=== PATIENT | female | born 2000 | race Caucasian/White ===

== ENCOUNTER 2020-04-26 21:58 | Inpatient (IN) | payer OTHER, SELFPAY ==
[2020-04-26 22:12] VITALS: BP 121/76; PULSE 73; TEMP 36.3; O2SAT 100
[2020-04-26 22:16] VITALS: BMI 32.3
[2020-04-26 22:43] LABS: Absolute Neutrophil Count 9.6 X10^3/uL (2.0-7.7); Basophil# 0.02 X10^3/uL; Basophil% 0.2 % (0-1); Eosinophil# 0.03 X10^3/uL; Eosinophils% 0.3 % (0-5); Hematocrit 38.6 % (37-47); Hemoglobin 12.7 g/dL (12.0-15.0); Lymphocyte % 11.9 % (19-41); Mean Corp Hgb Conc 32.9 g/dL (32-36); Mean Corpuscular Hgb 29.5 pg (27.0-32.0); Mean Corpuscular Volume 89.8 fL (81-99); Mean Platelet Vol. 9.7 fl (6.2-12.0); Monocyte# 0.62 X10^3/uL; Monocyte% 5.3 % (0-10); NRBC Flagged by Analyzer 0 % (0-5); Neutrophil # 9.57 X10^3/uL (2.7-7.7); Neutrophil % 81.6 % (47-70); Platelet Count 217 K/mm3 (150-450); RBC Distribution Width CV 13.2 % (11.6-14.6); RBC Distribution Width SD 43.5 fl (35.1-43.9); White Blood Count 11.7 K/mm3 (4.4-11.0)
[2020-04-26] MEDS: miSOPROStol 25 MCG TABLET VAGINAL (23:00)
[2020-04-26 23:32] VITALS: TEMP 37
[2020-04-26 23:43] VITALS: BP 118/62; PULSE 59; TEMP 36.7; O2SAT 97
[2020-04-27] VITALS (54 sets, daily range): BP systolic 86–126; BP diastolic 50–69; PULSE 60–97; RESP 16; TEMP 36–37.8; O2SAT 94–100
[2020-04-27] MEDS: Oxytocin 30 units/NS 500 ml 30 UNITS/500 ML IV.SOLN IV (04:00)
[2020-04-27] MEDS: Lactated Ringers 1,000 ML 50 ML IV (04:00)
[2020-04-27] MEDS: Lactated Ringers 500 ML 999 ML IV ×3 (04:14→10:53)
[2020-04-27] MEDS: fentaNYL-bupivacaine (epidural) 100 ML BAG EPIDURAL ×2 (05:59→10:38)
[2020-04-27] MEDS: 0.9% Saline Lock 10 ML Syringe IV ×2 (06:27→16:12)
[2020-04-27] MEDS: Ondansetron 4 MG/2 ML Vial IV (06:27)
--- NOTE | 2020-04-27 08:46 | HP.PCM_ITS ---
- Problem List (1) Encounter for induction of labor Status: Acute (2) COVID-19 affecting in third trimester Status: Acute (3) Anxiety and depression Status: Acute (4) History of spontaneous Status: Acute History Date of Admission: 04/26/20 Final AD: 04/28/20 Final AD Source: US <20 weeks Gestational age: 39 Weeks and 6 Days History of this : This is a 19 year-old, G [3], P [0020], at 39 weeks 2 days gestational age by ultrasound. Patient presents to labor and delivery for induction of labor due to Covid and patient desire for induction of labor. course complicated by COVID-19 on 02/27/2020. Allergies Penicillins Allergy (Verified 04/26/20 22:17) Rash Home Medications: Home Medications Vit No.130/Iron/Folic [ Tablet] 1 tab PO DAILY 04/26/20 Smoking Status: Never smoker Alcohol: None Number of Fetus(es): 1 NST - FHR Rate Baby A Baseline: 135 Variability:: Moderate Accelerations:: 15 x 15 Decelerations:: None FHR Category:: Category I Uterine Activity:: every 2-3 minutes History Past Pregnancies: Past Pregnancies Delivery Date Name GA/ Weeks Outcome Route Wt Infant Sex Labor Length Anesthesia Delivery Location Provider FOB Mom's Current Diagnoses Second degree perineal laceration during delivery 04/26/20 Mom's Problem List Problem Status Onset Code Encounter for induction of labor Acute Z34.90 COVID-19 affecting in third trimester Acute O98.513, U07.1 Anxiety and depression Acute F41.9, F32.9 History of spontaneous Acute Z87.59 Mom's Labs & Results 04/26/20 04/26/20 22:20 22:20 WBC 11.7 H RBC 4.30 Hgb 12.7 Hct 38.6 MCV 89.8 MCH 29.5 MCHC 32.9 RDW Std Deviation 43.5 RDW Coeff of Lsia 13.2 Plt Count 217 MPV 9.7 Immature Gran % (Auto) 0.700 Neut % (Auto) 81.6 H Lymph % (Auto) 11.9 L [place] % (Auto) 5.3 Eos % (Auto) 0.3 Baso % (Auto) 0.2 Absolute Neuts (auto) 9.6 H Absolute Lymphs (auto) 1.40 Nucleated RBC % 0 Blood Type A POSITIVE Antibody Screen NEGATIVE Course Did the patient receive Yes care? Labs Blood Type: A RH: POSITIVE RPR/VDRL/Syphilis Nonreactive Rubella status Immune HbSAg Negative Date Done: 10/17/19 Chlamydia Negative Gonorrhea Negative HIV/AIDS Non-Reactive Group B Strep: Negative Current Obstetrical History Gestational Diabetes No Incompetent Cervix No Infertility No IUGR No Macrosomia No Hypertension/Pre-eclampsia No Placenta Previa/Abruption No PTL/PROM No Uterine anomaly No Oligohydramnios No Polyhydramnios No Multiple gestation No Past Medical History Asthma No Diabetes No Hypertension No Heart disease No Mitral valve prolapse No Neurologic/Seizure disorder/ No Migraines Kidney disease No Liver disease No Varicosities No Clotting disorders/Hx of DVT No Thyroid Dysfunction No Other medical diseases No Psychiatric disorders No Major trauma No Abnormal PAP smear Yes: in , will follow up post delivery Sleep apnea No Mammogram in the last 2 years No Enter DETAILS of medical mass in rt breast, cyst in lt breast history Social History Marital Status: Alleged father Phillip Hawkins Hx Smoking No Smoking Status Never smoker Expected Infant Delivery Method: Spontaneous Vaginal Review of Systems Constitutional: Denies: Chills, Fever, Weight Change HEENT: Denies: Head Aches, Sinus Congestion, Sinus Drainage Cardiovascular: Denies: Chest Pain, Palpitations Respiratory: Denies: Cough, Shortness of breath at rest, Sputum production Gastrointestinal: Denies: Abdominal Pain, Nausea, Vomiting Genitourinary: Denies: Dysuria Musculoskeletal: Denies: Joint Pain, Joint Tenderness Skin: Denies: Rash, Wounds Neurological: Denies: Numbness, Tingling, Focal weakness Psychiatric: Denies: Anxiety, Depression, Homicidal Ideations, Suicidal Ideations Hematologic/ Lymphatic: Denies: Easy Bruising, Easy Bleeding Physical Exam Vitals: Vital Signs Temp Pulse BP Pulse Ox 97.9 F 66 115/58 L 96 04/27/20 07:53 04/27/20 07:53 04/27/20 07:53 04/27/20 07:53 General: Alert, Oriented x3, No apparent distress HEENT: Atraumatic, Normocephalic Cardiovascular: Regular rate, Regular Rhythm Lungs: Clear to auscultation Abdomen: Bowel Sounds Present, Gravid Neurological: Neuro grossly intact SLIP SEAT COVERER: Normal external genitalia. Negative for: Vulvar lesions Estimated gestational size: Appropriate for gestational size Presentation: Cephalic Cervix Dilation (cm): 6 - was planning to attempt AROM, no BOW palpated and small amount of fluid and bloody show. Station: 0 Effacement (%): 90 Assessment/Plan All Active Problems Encounter for induction of labor (Acute) COVID-19 affecting in third trimester (Acute) Anxiety and depression (Acute) History of spontaneous (Acute) This is a 19 year-old, G [3], P [0020], at 39 weeks 2 days gestational age. A:Induction of labor at term COVID 19 in Category 1 FHT P: 1. Admit to labor and delivery. 2.routine labs. 3.continuous electronic monitoring 4.Pitocin per protocol. Cytotec placed overnight for cervical ripening 5. Epidural for pain management 6. Dr. Dupree [facility] physician notified of patient status
[2020-04-27] MEDS: Lactated Ringers 1,000 ML 200 ML IV (10:39)
[2020-04-27] MEDS: Oxytocin 30 units/NS 500 ml 30 UNITS/500 ML IV.SOLN 334 UNITS IV (12:54)
--- NOTE | 2020-04-27 16:32 | PCM.OPRPT ---
Problem List (1) Encounter for induction of labor Status: Acute (2) COVID-19 affecting in third trimester Status: Acute (3) Anxiety and depression Status: Acute (4) History of spontaneous Status: Acute (5) Vaginal delivery Status: Acute (6) Second degree perineal laceration Status: Acute Vaginal Delivery Maternal Presentation: Medically Indicated Induction - covid 19 in Method of Induction: Pitocin, Cytotec Medical Reason for Induction: - - Covid 19 in Amniotic Membrane Rupture Type: Spontaneous Amniotic Fluid Description: Clear Final AD: 04/28/20 Final AD Source: US <20 weeks Gestational age: 39 Weeks and 6 Days Date of Procedure: 04/27/20 Pre-Operative Diagnosis: Induction of labor Post-Operative Diagnosis: Surgery/ Procedure Performed: Spontaneous Vaginal Delivery Type of Anesthesia: Epidural Description of Procedure: Patient progressed to complete dilation and +3 station. Called to hospital for delivery. Patient with good pushing effort. of viable female infant over second-degree perineal laceration. Apgars 8, 9. head delivered and allowed for restitution, with body forthcoming. placed on maternal abdomen, spontaneous strong cry. Mouth and nares wiped for secretions. Pitocin started for third stage active management. Clamped and cut after pulsations ceased by father of baby. Placenta delivered with minimal effort and expression, intact, three-vessel cord. Perineum and vagina inspected, second-degree perineal laceration. Laceration repaired under epidural analgesia with 3.0 Vicryl. Well approximated and hemostasis achieved. Fundus firm and vaginal sweep completed by myself. EBL 350 mL. Sponge and instrument count correct. Mother planning to breast-feed. Mom baby stable. Family bonding well. Dr. Dupree notified of patient delivery. Presentation: Vertex, OPHELIA Placental Delivery Description: Spontaneous Placenta Disposition: [facility] Cord Vessel Description: 3 Vessels Cord Entanglement: None Estimated Blood Loss: 350 ml Infant A gender: Female (1 minute): 8 (5 minute): 9 Episiotomy Description: None Laceration: Perineal Extension/lac, 2nd degree Medications given after delivery: IV Pitocin Complications: None
[2020-04-27] MEDS: Ibuprofen 600 MG Tablet PO (19:27)
[2020-04-28] VITALS (9 sets, daily range): BP systolic 106–123; BP diastolic 53–64; PULSE 58–71; RESP 16; TEMP 36.6–36.9; O2SAT 95–97
[2020-04-28 05:05] LABS: Hematocrit 33.5 % (37-47); Hemoglobin 11.3 g/dL (12.0-15.0); Mean Corp Hgb Conc 33.7 g/dL (32-36); Mean Corpuscular Hgb 30.5 pg (27.0-32.0); Mean Corpuscular Volume 90.5 fL (81-99); Mean Platelet Vol. 9.6 fl (6.2-12.0); Platelet Count 190 K/mm3 (150-450); RBC Distribution Width CV 13.3 % (11.6-14.6); RBC Distribution Width SD 44.1 fl (35.1-43.9); White Blood Count 14.1 K/mm3 (4.4-11.0)
[2020-04-28] MEDS: Acetaminophen 500 MG Tablet 1000 MG PO (08:38)
--- NOTE | 2020-04-28 12:30 | CASEMGMT ---
Social Work Brief Assessment Labor and Delivery Unit Refer documentation below for further details. Date of Referral/Notification: 04/27/20 Time of Referral: 16:10 Referred By: Hilda Morales CNM Reason for Referral: MOB requested information on Medicaid. MOB with history of anxiety and depression. Date of Intervention: 04/28/20 Time of Intervention: 12:30 Informant: Medical record and mother of baby (MOB) Assessment: Met with MOB and FOB in room. Introduced role and reason for referral. MOB reports history of anxiety that started sophomore year of high school. MOB states was briefly treated with Prozac, but stopped taking medication because MOB reports it ?made symptoms worse.? Reviewed signs/symptoms of Post- Depression and provided educational handouts. MOB denies any current issues. MOB and FOB deny any history of substance use. MOB states to have all needs met for baby. MOB is breast feeding and states baby girlCelestino is doing well with feeds. MOB inquiring about applying for Medicaid. MOB given information and denies any questions or concerns. MOB states will be following up on Thursday with WIC and [employer]. Nursing updated on this workers assessment and denies any concerns. Plan: Home with resources provided No further needs requested or indicated. Nathalia Leyva, TABBER, FLEXO PRESS OPERATOR
--- NOTE | 2020-04-28 15:57 | PCM.PN.OB ---
Patient Problems: Active and Suspected Problems Encounter for induction of labor (Acute) COVID-19 affecting in third trimester (Acute) Anxiety and depression (Acute) History of spontaneous (Acute) Vaginal delivery (Acute) Second degree perineal laceration (Acute) - Physical Exam Vitals/I&O's: Vital Signs Temp Pulse Resp BP Pulse Ox 97.8 F 58 L 16 106/53 L 97 04/28/20 13:25 04/28/20 13:25 04/28/20 13:25 04/28/20 13:25 04/28/20 13:25 Oxygen Delivery Method Room Air Weight: 182 lb 12.8 oz Body Mass Index (BMI) 32.3 Intake and Output for Last 24 Hours 04/26/20 04/27/20 04/28/20 23:59 23:59 23:59 Intake Total 4322.95 / 4322.95 Output Total 100 / 100 2750 / 2750 Balance -100 / -100 1572.95 / 1572.95 General: Alert, Oriented x3, Cooperative HEENT: Atraumatic, Normocephalic Neck: Trachea Midline Lungs: Clear to auscultation, Normal air movement, No rhonchi, No wheeze Cardiovascular: Regular rate, Regular Rhythm, No murmurs Abdomen: Bowel Sounds Present, Soft - fundus firm 2 below U Extremities: No edema Psych/Mental Status: Normal Affect, Appropriate Laboratory Results 04/28/20 05:00: WBC 14.1 H, RBC 3.70 L, Hgb 11.3 L, Hct 33.5 L, MCV 90.5, MCH 30.5, MCHC 33.7, RDW Std Deviation 44.1 H, RDW Coeff of Lisa 13.3, Plt Count 190, MPV 9.6 Current Medications Acetaminophen (Acetaminophen 500 Mg Tablet) 1,000 mg PO Q8H PRN PRN PRN Reason: Pain Score 1-3 Last Admin: 04/28/20 08:38 Dose: 1,000 mg Documented by: Bisacodyl (Bisacodyl 10 Mg Suppository) 10 mg RECTAL UD PRN PRN Reason: If no BM Dibucaine (Dibucaine 30 Gm Tube) 1 applic TOPICAL TID PRN PRN; Protocol PRN Reason: Discomfort Hydrocortisone (Hydrocortisone 2.5% Crm) 1 applic TOPICAL TID PRN PRN; Protocol PRN Reason: Discomfort Ibuprofen (Ibuprofen 600 Mg Tablet) 600 mg PO Q6H PRN PRN PRN Reason: Pain Score 1-3 Last Admin: 04/27/20 19:27 Dose: 600 mg Documented by: Methylergonovine Maleate (Methylergonovine 0.2 Mg/Ml Ampul) 0.2 mg IM X1 PRN PRN Reason: Excess bleeding/uterine atony Ondansetron HCl (Ondansetron 4 Mg/2 Ml Vial) 4 mg IV Q4H PRN PRN PRN Reason: Nausea Senna/Docusate Sodium (Senna/Docusate Sodium 1 Tablet) 1 - 2 tablet PO DAILY PRN PRN PRN Reason: Constipation Simethicone (Simethicone 80 Mg Tablet) 80 mg PO PCHS PRN PRN Reason: Indigestion/Stomach pain Sodium Chloride (0.9% Saline Lock 10 Ml Syringe) 5 - 15 ml IV UD PRN PRN Reason: SALINE FLUSH Last Admin: 04/27/20 16:12 Dose: 10 ml Documented by: Medical Necessity - Tobacco Use Smoking Status: Never smoker Assessment/Plan All Active Problems Encounter for induction of labor (Acute) COVID-19 affecting in third trimester (Acute) Anxiety and depression (Acute) History of spontaneous (Acute) Vaginal delivery (Acute) Second degree perineal laceration (Acute) A:PPD#1 Second degree perineal laceration P: 1) Routine and discharge instructions 2) H&H stable 3) Pain controlled 4) Vitals stable 5) Follow up in 2 weeks for virtual visit and 6 weeks for visit.
--- NOTE | 2020-04-28 15:58 | DCINST_ITS ---
Discharge Diet: No Restrictions Discharge Activity: Return to Normal Activity, May not drive while taking narcotic pain medications., May Shower, May Take a Tub Bath May resume sexual activity in: 4-6 weeks Weight Bearing Status: Full weight bearing Additional Activity Instructions:: Nothing in the vagina for 4-6 weeks. You may return to work/school in 6 weeks. Call your doctor if your incision/area has: Continuous Slow Oozing, Sudden Increased Bleeding, Increased Pain/ Swelling, Increased Redness, Foul Smelling Discharge Call your doctor if you observe: Fever of 101 or Higher, Inability to urinate, Inability to have a bowel movement, Using more than one pad per hour, Shortness of breath, Chest pain, Increased palpitations (irregular heartbeat), Calf discomfort, Uncontrolled pain Additional Instructions: If you experience any of the following, contact your healthcare provider. * Bleeding that soaks a pad every hour for 2 hours * Fever 100.4 or higher * Unrelieved incision or abdominal pain * Swelling, redness, discharge or bleeding from your incision or episiotomy site * Your incision begins to separate * Problems urinating (including inability to urinate or burning while urinating). * Visual changes * Severe headache * Flu-like symptoms * Pain or redness in one of both of your breasts * Pain, warmth, tenderness or swelling in your legs, especially the calf area * Frequent nausea and vomiting * Symptoms of depression or anxiety If you experience any of the following, call 911 or go to the nearest Emergency Room. * Chest pain * Problems breathing * Seizure activity * Partial or complete paralysis of a body part, slurred speech, weakness or drooping of the face, or a sudden inability to walk or hold your balance Allergies/Adverse Reactions: Allergies Penicillins Allergy (Verified 04/26/20 22:17) Rash Medications to take at Discharge Vit No.130/Iron/Folic [ Tablet] 1 tab PO DAILY 04/26/20 Ibuprofen [Motrin] 600 mg PO Q6H PRN PRN #30 tab 04/28/20 The following prescriptions were given: Ibuprofen [Motrin] 600 mg PO Q6H PRN PRN #30 tab PRN Reason: Pain Score 1-3 Transmission Status: Pending to [id number] Please Follow Up With: Hilda Morales CNM When: Call to make an appointment with your doctor in 2 weeks for virtual or in person visit and in person at 6 weeks. Primary Care Physician: Care Physician,No Primary [Primary Care Provider] - Test Results: Test results from this visit will be discussed in further detail at your follow- up appointment, if applicable.
== END 2020-04-28 17:57 | disposition home or self-care (01) | DRG 807 ==
PROVIDERS: Admitting Provider Obstetrics & Gynecology; Referring Provider Obstetrics & Gynecology; Visit Provider Advanced Practice Midwife
DX: O70.1 Second degree perineal laceration during delivery (principal); Z86.16 Personal history of COVID-19; Z3A.39 39 weeks gestation of pregnancy; Z37.0 Single live birth
CPT/HCPCS: 59025; 59050; 85025; 85027; 86850; 86900; 86901; 99218; J7120; A4216; G0378; J2405; J3490

== ENCOUNTER 2021-07-15 23:00 | Outpatient (CLI) | payer OTHER, MEDICAID, SELFPAY ==
[2021-07-15 23:21] VITALS: BMI 35.9
[2021-07-15 23:27] VITALS: PULSE 78; O2SAT 98
--- NOTE | 2021-07-15 23:27 | OB.TRI.NOTE ---
HPI - General HPI Latasha PARKER, is a 21 F at 39.0 weeks gestation who presents to triage with contractions. Patient seen in office today and had CE completed with membrane sweeping. She reports contractions every 5 minutes this evening. Denies any loss of fluid or vaginal bleeding. Positive movement. Maternal Data Information AD Calculator Estimated Delivery Date Method Current WG Current Estimate 07/22/21 Manual 39w 1d PFSH PFSH Home Medications vit no.083-zfas-pjeto 1 tab PO DAILY 04/26/20 [History Last Taken 07/13/21 08:00] ibuprofen 600 mg PO Q6H PRN PRN #30 tab 04/28/20 [Rx Last Taken 07/13/21 08:00] Allergy/AdvReac Type Severity Reaction Status Date / Time Penicillins Allergy Rash Verified 07/15/21 23:21 Social History Smoking Status: Never smoker History Elective abortions Hx Para 0 Spontaneous abortions Hx # Term Pregnancies Ectopic pregnancies Hx # Pregnancies Multiple births # of living children ROS Eyes Eyes: Denies blurry vision Cardiovascular Cardiovascular: Reports none; Denies chest pain at rest, chest pain with activity or dizziness Respiratory/Chest Respiratory/Chest: Denies cough or dyspnea Gastrointestinal Gastrointestinal: Reports none and other; Denies diarrhea or vomiting Genitourinary Genitourinary: Denies dysuria Musculoskeletal Musculoskeletal: Reports none Integumentary Integumentary: Reports none; Denies rash Neurologic Neurologic: Denies dizziness, headache(s) or other visual disturbances Psychiatric Psychiatric: Reports none Physical Exam Const alert, oriented x3 and no apparent distress General Appearance: cooperative Orientation / Consciousness: awake Exam Limitations: no limitations HEENT normocephalic Head and Scalp: normal to inspection Eyes General Eye: normal appearance of both eyes Neck full ROM and no lymphadenopathy Lymph Lymphatic: no lymphadenopathy noted Chest inspection of chest normal Resp normal respiratory effort, normal air movement and clear to auscultation bilaterally Effort and Inspection: able to speak in complete sentences and symmetric chest movement Cardio regular rate and regular rhythm GI normal to inspection, nondistended, normoactive bowel sounds Manual OB Exam: presentation cephalic Back/Spine normal ROM Extremity full ROM and no calf tenderness Skin no rashes or lesions noted General Skin Exam: no breakdown Neuro oriented x3 and CN's II-XII intact bilaterally Psych mental status grossly normal and thought process normal NST FHR Rate Baby A Baseline: 140 Variability:: Moderate Accelerations:: 15 x 15 Decelerations:: None NST Reactive:: Yes FHR Category:: Category I Uterine Activity:: irregular Assessment & Plan (1) 39 weeks gestation of : (2) Uterine contractions: PLAN: CE /-3 upon arrival and no change after extended monitoring Cat. 1 tracing NST reactive GBS negative D/C home with follow up in office this week
[2021-07-15 23:28] VITALS: BP 112/69; PULSE 80; TEMP 36.5; O2SAT 98
== END 2021-07-16 02:20 | disposition home or self-care (01) ==
LOC: WPOUT 23:12 → WP 23:12
PROVIDERS: Visit Provider Obstetrics & Gynecology
DX: O47.1 False labor at or after 37 completed weeks of gestation (principal); Z3A.39 39 weeks gestation of pregnancy
CPT/HCPCS: 59025; 59050; 99218; G0378

== ENCOUNTER 2021-07-19 07:00 | Inpatient (IN) | payer OTHER, MEDICAID, SELFPAY ==
[2021-07-19] VITALS (38 sets, daily range): BP systolic 97–138; BP diastolic 53–77; PULSE 14–214; RESP 16; TEMP 36.4–36.8; O2SAT 82–99; BMI 35.6
[2021-07-19] MEDS: Lactated Ringers 1,000 ML 50 ML IV (07:35)
[2021-07-19] MEDS: Ondansetron 4 MG/2 ML Vial IV (07:50)
[2021-07-19 07:54] LABS: Absolute Neutrophil Count 5.7 X10^3/uL (2.0-7.7); Basophil# 0.01 X10^3/uL; Basophil% 0.1 % (0-1); Eosinophil# 0.05 X10^3/uL; Eosinophils% 0.6 % (0-5); Hematocrit 35.6 % (37-47); Hemoglobin 11.7 g/dL (12.0-15.0); Lymphocyte % 20.1 % (19-41); Mean Corp Hgb Conc 32.9 g/dL (32-36); Mean Corpuscular Hgb 28.6 pg (27.0-32.0); Monocyte# 0.56 X10^3/uL; NRBC Flagged by Analyzer 0 % (0-5); Neutrophil # 5.68 X10^3/uL (2.7-7.7); Neutrophil % 71.6 % (47-70); Platelet Count 232 K/mm3 (150-450); RBC Distribution Width CV 13.7 % (11.6-14.6); Red Blood Count 4.09 M/mm3 (4.2-5.4)
[2021-07-19] MEDS: Oxytocin 30 units/NS 500 ml 30 UNITS/500 ML IV.SOLN IV (08:09)
[2021-07-19] MEDS: Lactated Ringers 500 ML 999 ML IV (08:56)
--- NOTE | 2021-07-19 08:57 | PCM.HP.OB ---
HPI - General General Date of Admission: 07/19/21 HPI Latasha PARKER, is a 21 F who presents for an elective 39 week IOL with a favorable cervix. History of 1 prior vaginal delivery, and that was complicated by Covid infection. Baby was 8+ pounds. Maternal Data Information AD Calculator Estimated Delivery Date Method Current WG Current Estimate 07/22/21 Manual 39w 4d PFSH PFSH Medical History (Updated 07/19/21 @ 07:31 by Rosie Thompson) Anxiety Depression Home Medications vit no.544-shuh-jlrsc 1 tab PO DAILY 04/26/20 [History Last Taken 07/13/21 08:00] ondansetron HCl 07/19/21 [History Last Taken Unknown] Allergy/AdvReac Type Severity Reaction Status Date / Time Penicillins Allergy Rash Verified 07/19/21 07:18 Surgical History (Updated 07/19/21 @ 07:31 by Rosie Thompson) History of gynecologic surgery Social History Smoking Status: Never smoker History Elective abortions Hx Para 1 Spontaneous abortions Hx # Term Pregnancies Ectopic pregnancies Hx # Pregnancies Multiple births # of living children NST FHR Rate Baby A FHR Category:: Category I Vital Signs Vital Signs Vital Signs: 07/19/21 07:46 07/19/21 07:56 07/19/21 08:52 Temperature 97.9 F Temperature Source Temporal Pulse Rate 70 83 67 Blood Pressure 117/67 119/77 BP Systolic 117 119 BP Diastolic 67 77 Pulse Ox 97 98 Weight Weight: 201 lb 4.513 oz Body Mass Index (BMI) 35.6 Physical Exam Const alert and no apparent distress General Appearance: comfortable GI soft to palpation and non-tender Narrative: Cvx /-1 Labs Labs Labs: Blood Type A POSITIVE Antibody Screen NEGATIVE Hct 35.6 % (37-47) L Hgb 11.7 g/dL (12.0-15.0) L Rhogam given: No Assessment & Plan (1) Encounter for induction of labor: PLAN: Presents for an elective 39-week induction of labor with a favorable cervix. GBS is negative. Epidural for pain control. We will start Pitocin and AROM when able. COVID was negative. Discussed risk, benefits, alternatives to elective induction of labor with patient in the office and she desired to proceed. Consent was signed. (2) Anxiety and depression: (3) 39 weeks gestation of :
--- NOTE | 2021-07-19 12:26 | PCM.PN.BLA ---
Progress Note At bedside. Pt comfortable with epidural. Cvx 4.5/70/-1, AROM performed for moderate clear fluid. head well applied. Category 1 tracing. Continue to titrate pitocin.
[2021-07-19] MEDS: Oxytocin 30 units/NS 500 ml 30 UNITS/500 ML IV.SOLN 334 UNITS IV (14:12)
--- NOTE | 2021-07-19 14:21 | OP.PCM_ITS ---
Problems Associated Problem List Diagnoses (1) Encounter for induction of labor: (2) Vaginal delivery: (3) 39 weeks gestation of : Report of Operation Date of Procedure: 07/19/21 Pre-Operative Diagnosis: 39 week gestation, elective induction of labor planned Post-Operative Diagnosis: As above Surgery/Procedure Performed:: Description of Surgical Findings:: Fluid was clear initially after AROM, and then later the fluid with lightly meconium stained. Vigorous viable female delivered. Apgars 8, 9. Loose nuchal cord x1 around neck. First-degree vaginal laceration. Normal appearing placenta with 3 VC. Surgeon: Leigh Choi Type of Anesthesia: Epidural Special Medications: None Specimen's removed: Placenta Drains: [place] Estimated Blood Loss (mL): 200 Fluids Replaced: n/a Description of Procedure: After rupture of membranes, the patient progressed quickly from 5 cm to complete. She pushed for 2 contractions. With pushing the head of the infant was delivered in right occiput anterior position, and a loose nuchal cord was noted around the neck. The nuchal cord was unable to be reduced therefore the infant was delivered through the nuchal cord. The anterior shoulder, followed by the posterior shoulder, followed by the body of the infant were delivered without any excessive traction or force or delay. Viable female was delivered and placed on maternal abdomen. The cord was clamped and cut by the father the baby after a 60 sec delay. The placenta was delivered with fundal massage and noted to be normal-appearing and intact with a three- vessel cord. The uterus was explored x1. Fundus was firm and bleeding hemostatic. A first-degree vaginal laceration was noted and repaired with 3-0 Vicryl. Vaginal sweep was performed. Sponge and needle counts were correct. Grafts/Implants Used: None Complications None Admit VTE Documentation VTE Present on Admission: No
[2021-07-19] MEDS: Acetaminophen 500 MG Tablet 1000 MG PO (18:37)
[2021-07-20 00:17] VITALS: BP 117/73; PULSE 62; RESP 16; TEMP 36.4
[2021-07-20 00:19] VITALS: BP 117/73; PULSE 62
[2021-07-20] MEDS: Acetaminophen 500 MG Tablet 1000 MG PO ×2 (00:23→07:41)
[2021-07-20 04:25] VITALS: BP 112/67; PULSE 56; RESP 16; TEMP 36.3
[2021-07-20 04:26] VITALS: BP 112/67; PULSE 56
--- NOTE | 2021-07-20 07:25 | PCM.PN.OB ---
Subjective Subjective Patient is doing well. Pain is well controlled. Lochia normal. Breast-feeding without complaints. Ambulating and voiding without difficulty. Tolerating regular diet. She desires discharge today. Objective Data Objective Data Vital Signs: Vital Signs Temp Pulse Resp BP Pulse Ox 97.3 F L 56 L 16 112/67 82 07/20/21 04:25 07/20/21 04:26 07/20/21 04:25 07/20/21 04:26 07/19/21 14:36 Oxygen Delivery Method Room Air Weight: 201 lb 4.513 oz Body Mass Index (BMI) 35.6 Intake & Output: Intake and Output for Last 24 Hours 07/18/21 07/19/21 07/20/21 23:59 23:59 23:59 Intake Total 2035.03 / 2035.03 Output Total 1600 / 1600 Balance 435.03 / 435.03 Lab / Micro Data Result Diagrams: 07/19/21 07:35 Labs: Laboratory Results - last 24 hr 07/19/21 07:35: WBC 8.0, RBC 4.09 L, Hgb 11.7 L, Hct 35.6 L, MCV 87.0, MCH 28.6, MCHC 32.9, RDW Std Deviation 43.0, RDW Coeff of Lisa 13.7, Plt Count 232, MPV 10.0, Immature Gran % (Auto) 0.600, Neut % (Auto) 71.6 H, Lymph % (Auto) 20.1, [place] % (Auto) 7.0, Eos % (Auto) 0.6, Baso % (Auto) 0.1, Absolute Neuts (auto) 5.7, Absolute Lymphs (auto) 1.60, Nucleated RBC % 0 07/19/21 07:35: Blood Type A POSITIVE, Antibody Screen NEGATIVE Physical Exam Const alert and no apparent distress General Appearance: comfortable HEENT normocephalic Resp normal respiratory effort Extremity no calf tenderness Extremity Narrative: Trace edema bilaterally Assessment & Plan (1) Vaginal delivery: PLAN: Patient is day 1 from a vaginal delivery. Doing well and desires discharge today. Discharge instructions reviewed.
--- NOTE | 2021-07-20 07:27 | PCM.DC ---
Discharge Instructions Diet Discharge Diet: No restrictions Activity Discharge Activity: May Shower May resume sexual activity in: 6 weeks Ice area for (Minutes): 15 Weight Bearing Status: Weight bearing as tolerated Lifting Restrictions: Nothing heavier than baby Dressing / Incision Call your doctor if you observe: Fever of 101 or Higher, Coldness, Increased Pain, Numbness or Tingling, Change in Color, Inability to urinate, Inability to have a bowel movement, Using more than 1 pad per hour, Shortness of breath, Dizziness, Fainting spells, Swelling in the ankles, Chest pain, Prolonged hiccupping, Increased palpitations (irregular heartbeat), Calf discomfort and Uncontrolled pain Follow Up Care Please Follow Up With: Leigh Choi DO When: 6 week visit Test Results: Test results from this visit will be discussed in further detail at your follow-up appointment, if applicable. Discharge Plan Admission Admit Date/Time: 07/19/21 07:00 Primary Reason for Your Visit: delivery Attending Provider: Leigh Choi Primary Care Provider: Care Physician,Chelly Primary Discharge Orders/Prescriptions Prescriptions: Continued vit no.[id number] 1 EACH tablet 1 tab PO DAILY RF: 0 Discontinued ondansetron HCl 4 mg tablet RF: 0 Referrals / Follow Up: Care Physician,No Primary [Primary Care Provider] - Disposition Disposition (needs filled in before D/C Order can be placed): Home, Self Care
[2021-07-20 09:11] VITALS: BP 121/59; PULSE 60; RESP 16; TEMP 37
--- NOTE | 2021-07-20 10:34 | CASEMGMT ---
Social Work Assessment Labor and Delivery Unit Date/Time of referral: 07/19/21, 16:35 Referred By: Leigh Choi Date/Time of intervention: 07/20/21, 10:00am Reason for Referral: history of anxiety and depression History obtained from: MOB, FOB present but soundly asleep Household Composition: FOB,MOB, daughter, and now 2nd daughter Lashaun Gardiner. MOB and FOB have been together for 5 years, 2. Parent/Guardian Status: MOB and FOB guardians of this baby Medical history: MOB, hx of anxiety and depression. Baby: Born 07[birth year] at 14:08, Apgars 8 & 9 at 1 and 5 minutes. 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 MOB stays home with the children, FOB works construction w/[employer] supplies: They have all needed supplies including crib, bassinet, clothing, diapers, car seats, bottles. MOB plans to breast feed. Childcare/Caregivers: MOB and FOB, MOB and FOB's mothers. Transportation: They have two vehicles. Programs/Agencies Involved: [facility] Children Services/Legal issues: None Behavioral Health Issues: Substance Abuse: No issues for FOB or MOB. Mental Health: FOB has depression. MOB has anxiety. MOB states was diagnosed in high school. She did try medication but she states it made it worse. She has never done counseling. She states she is managing well with the anxiety at present, has moments where anxiety creeps in, but is able to work through it. She states is aware with both her history and her 's, and with a family history of depression/anxiety, her children may struggle with this as well. We spoke about how being aware of this will help them as parents to watch for warning signs as the children get older. Family/Social Stressors: None reported Support systems: FOB's family, MOB's family, siblings, grandmothers Depression and Anxiety/Shaken Baby/Safe Sleeping/ Help Me Grow/Mental Health Resources: Information provided and reviewed on all of these topics. We spoke specifically about depression and anxiety, and reaching out for help if needed. We also spoke about grounding techniques. Assessment: MOB appropriate w/SW, answered all questions completely and appropriately. MOB tending to the baby and exhibiting appropriate care for baby. MOB open to resources and talking through grounding techniques. No concerns for baby going home w/parents today. Plan: Baby to go home w/MOB and FOB at discharge. No further social service needs warranted at this time. DAVID Anderson
[2021-07-20 12:52] VITALS: BP 120/60; PULSE 55; PULSE 56; PULSE 61; RESP 16; TEMP 36.1; O2SAT 98
== END 2021-07-20 15:05 | disposition home or self-care (01) | DRG 807 ==
PROVIDERS: Admitting Provider Obstetrics & Gynecology; Visit Provider Obstetrics & Gynecology
DX: O69.81X0 Labor and delivery complicated by cord around neck, without compression, not applicable or unspecified (principal); Z37.0 Single live birth; O70.0 First degree perineal laceration during delivery; O77.0 Labor and delivery complicated by meconium in amniotic fluid; Z20.822 Contact with and (suspected) exposure to COVID-19; Z3A.39 39 weeks gestation of pregnancy
CPT/HCPCS: 59025; 59050; 85025; 86850; 86900; 86901; 99218; J7120; G0378; J2405

== ENCOUNTER 2021-08-20 13:00 | Outpatient (CLI) | payer OTHER, MEDICAID, SELFPAY | END 2021-08-20 14:20 | disposition home or self-care (01) | LOC: WPOUT 13:08 → WP 13:08 | PROVIDERS: PCP Pediatrics; Visit Provider Pediatrics | DX: O99.893 Other specified diseases and conditions complicating puerperium (principal); N64.4 Mastodynia | CPT/HCPCS: 96158 ==

== ENCOUNTER 2024-08-29 07:30 | Inpatient (IN) | payer SELFPAY ==
[2024-08-29] VITALS (39 sets, daily range): BP systolic 96–123; BP diastolic 55–71; PULSE 49–150; RESP 16–18; TEMP 36.5–36.9; O2SAT 94–100; BMI 34.3
[2024-08-29] MEDS: Lactated Ringers 1,000 ML 50 ML IV (07:27)
[2024-08-29 07:59] LABS: Hematocrit 30.9 % (37-47); Hemoglobin 10.3 g/dL (12.0-15.0); Immature Granulocytes Count 0.030 X10^3/uL (0.0-0.0); Mean Corp Hgb Conc 33.3 g/dL (32-36); Mean Corpuscular Volume 83.3 fL (81-99); Mean Platelet Vol. 10.3 fl (6.2-12.0); NRBC Flagged by Analyzer 0 % (0-5); Platelet Count 187 K/mm3 (150-450); RBC Distribution Width CV 14.1 % (11.6-14.6); RBC Distribution Width SD 42.6 fl (35.1-43.9); Red Blood Count 3.71 M/mm3 (4.2-5.4); White Blood Count 5.8 K/mm3 (4.4-11.0)
[2024-08-29] MEDS: Oxytocin 15 Units/NS 250ml 15 UNITS/250 ML IV.SOLN 2 UNITS IV (08:22)
[2024-08-29 08:36] LABS: Syphilis Antibodies Nonreactive (Nonreactive)
--- NOTE | 2024-08-29 08:37 | HP.PCM.OB_ITS ---
HPI - General General Date of Admission: 08/29/24 HPI Latasha PARKER, is a 24 F who presents at 39w2d with elective induction of labor. . PFSH PFS Medical History (Updated 08/29/24 @ 14:39 by Hilda Morales CNM) Chlamydia infection affecting Depression Anxiety Vaginal delivery Home Medications ?Medication ?Instructions ?Recorded ?Last Taken ?Type vits no.130-ferrous fum 1 tab PO DAILY pregna ncy 04/26/20 08/27/24 20:00 History 27 mg iron-folic acid 800 mcg tablet aspirin 81 mg tablet,delayed 81 mg PO DAILY 08/29/24 08/28/24 20:00 History release Allergy/AdvReac Type Severity Reaction Status Date / Time Penicillins Allergy Rash Verified 08/29/24 07:27 Surgical History (Updated 07/19/21 @ 07:31 by Rosie Thompson) History of gynecologic surgery Social History Smoking Status: Never smoker History 2 Elective abortions Hx Para 2 Spontaneous abortions Hx # Term Pregnancies Ectopic pregnancies Hx # Pregnancies Multiple births # of living children 2 NST FHR Rate Baby A Baseline: 130 Variability:: Moderate Accelerations:: 15 x 15 Decelerations:: None FHR Category:: Category I Uterine Activity:: Irregular ROS Constitutional Constitutional: Reports systems reviewed and no addt'l complaints, except as documented; Denies headache(s) Eyes Eyes: Denies acute decrease in peripheral vision, blurry vision or change in vision ENT HEENT: Reports systems reviewed and no addt'l complaints, except as documented Cardiovascular Cardiovascular: Denies chest pain or dizziness Respiratory/Chest Respiratory/Chest: Denies cough, dyspnea, dyspnea on exertion, shortness of breath at rest or shortness of breath with exertion Gastrointestinal Gastrointestinal: Denies abdominal pain, diarrhea, nausea or vomiting Genitourinary Genitourinary: Denies abdominal discomfort Musculoskeletal Musculoskeletal: Denies limited range of motion Integumentary Integumentary: Reports systems reviewed and no addt'l complaints, except as documented Neurologic Neurologic: Reports systems reviewed and no addt'l complaints, except as documented Psychiatric Psychiatric: Reports systems reviewed and no addt'l complaints, except as documented Endocrine Endocrinology: Reports systems reviewed and no addt'l complaints, except as documented Hematologic/Lymphatic Hematologic/Lymphatic: Reports systems reviewed and no addt'l complaints, except as documented Allergic/Immunologic Allergic/Immunologic: Reports systems reviewed and no addt'l complaints, except as documented Vital Signs Vital Signs Vital Signs: 08/29/24 08:06 08/29/24 08:06 08/29/24 08:06 Temperature Temperature Source Temporal Pulse Rate Respiratory Rate 16 Blood Pressure BP Systolic BP Diastolic Pulse Ox 97 08/29/24 08:06 08/29/24 08:07 08/29/24 08:07 Temperature 98.2 F Temperature Source Pulse Rate 75 Respiratory Rate Blood Pressure 112/61 BP Systolic 112 BP Diastolic 61 Pulse Ox 08/29/24 08:07 Temperature Temperature Source Pulse Rate Respiratory Rate Blood Pressure BP Systolic BP Diastolic Pulse Ox 97 Weight Weight: 194 lb Body Mass Index (BMI) 34.3 Physical Exam Const alert and oriented x3 General Appearance: cooperative Orientation / Consciousness: awake, oriented to person, oriented to place and oriented to time Exam Limitations: no limitations HEENT normocephalic Head and Scalp: normal to inspection, normocephalic and atraumatic Face and Sinus: normal facial exam Eyes General Eye: normal appearance of both eyes Neck full ROM Chest Chest: symmetrical chest wall rise Resp normal respiratory effort and normal air movement Auscultation: clear to auscultation bilaterally Cardio regular rate, regular rhythm, S1 normal heart sound, S2 normal heart sound, no murmurs, no rub, no gallops and no clicks GI normal to inspection, nondistended, normoactive bowel sounds and non-tender appearance of the vagina normal Bladder / Kidney Exam: no CVA tenderness Back/Spine normal ROM Extremity normal to inspection and full ROM Skin no rashes or lesions noted Neuro oriented x3, CN's II-XII intact bilaterally and moves all extremities Sensorium / Orientation: awake, alert and oriented to person Motor Exam: clonus absent Deep Tendon Reflexes: Rt Patellar (L4): 2+ and Lt Patellar (L4): 2+ Labs Labs Labs: Blood Type A POSITIVE Antibody Screen NEGATIVE Hct 30.9 % (37-47) L Hgb 10.3 g/dL (12.0-15.0) L Syphilis Total Ab Nonreactive (Nonreactive) Rhogam given: No HIV negative HbsAG negative HepC negative GBS negative Gc/CT negative RRP negative Assessment & Plan (1) Encounter for induction of labor: (2) 39 weeks gestation of : PLAN: Plan 1) Admit to labor and delivery 2) Routine labs 3) Continuous EFM 4) Pain management upon request 5) Dr. Choi collaborative physician and notified of patient status, above assessment, and plan.
[2024-08-29] MEDS: Lactated Ringers 1,000 ML 999 ML IV (10:34)
[2024-08-29] MEDS: fentaNYL-bupivacaine (epidural) 100 ML BAG EPIDURAL (11:14)
--- NOTE | 2024-08-29 12:07 | PCM.PN.OB ---
Subjective Subjective Resting in bed, comfortable with epidural. Objective Data Objective Data Vital Signs: Vital Signs Temp Pulse Resp BP Pulse Ox 98.0 F 65 18 98/55 L 94 08/29/24 10:24 08/29/24 11:41 08/29/24 11:41 08/29/24 11:41 08/29/24 11:38 Weight: 194 lb Body Mass Index (BMI) 34.3 Intake & Output: Intake and Output for Last 24 Hours 08/27/24 08/28/24 08/29/24 23:59 23:59 23:59 Intake Total 1223.63 / 1223.63 Output Total 500 / 500 Balance 723.63 / 723.63 Lab / Micro Data 08/29/24 07:40 Labs: Laboratory Results - last 24 hr 08/29/24 07:40: WBC 5.8, RBC 3.71 L, Hgb 10.3 L, Hct 30.9 L, MCV 83.3, MCH 27.8, MCHC 33.3, RDW Std Deviation 42.6, RDW Coeff of Lisa 14.1, Plt Count 187, MPV 10.3, Immature Gran % (Auto) 0.500, Neut % (Auto) 64.4, Lymph % (Auto) 26.7, [place] % (Auto) 7.1, Eos % (Auto) 1.0, Baso % (Auto) 0.3, Absolute Neuts (auto) 3.7, Absolute Lymphs (auto) 1.55, Nucleated RBC % 0, Syphilis Total Ab Nonreactive, Blood Type A POSITIVE, Antibody Screen NEGATIVE Physical Exam Manual OB Exam: estimated gestational size appropriate, presentation cephalic, dilated 4, effaced 80, station -1 and other arom clear fluid NST FHR Rate Baby A Baseline: 135 Variability:: Moderate Accelerations:: 15 x 15 Decelerations:: None FHR Category:: Category I Uterine Activity:: Every 2-4 minutes, strong Assessment & Plan (1) Encounter for induction of labor: (2) 39 weeks gestation of : PLAN: Plan 1) Continue with active management 2) Pitocin per protocol 3) Epidural for pain management 4) AROM 5) updated on patient above assessment, status, and plan.
--- NOTE | 2024-08-29 14:39 | OB.VAGDELI_ITS ---
Assessment & Plan (1) Lactating mother: (2) Vaginal delivery: Vaginal Delivery Maternal Presentation Maternal Presentation: Elective Induction Type of Induction: Pitocin Medical Reason for Induction: Other Vaginal Delivery Information Procedure Performed: Spontaneous Vaginal Delivery Surgeon/Practitioner: Hilda Morales Date of Procedure: 08/29/24 Pre-Procedure Diagnosis: Elective Induction of Labor Post-Procedure Diagnosis: Type of anesthesia: Epidural Estimated Blood Loss: 300ml Time of Delivery: 13:13 Findings Description of procedure: Progressed to complete with urge to push. Epidural for pain management. of viable female over intact . APGARS 8,9 respectively. Infant head delivered with body immediately forthcoming. Placed on maternal abdomen, strong cry. Mouth and nares suctioned for secretions. Pitocin started for active 3rd stage management. Cord doubly clamped and cut by FOB after pulsations ceased, delayed cord clamping. Placenta not forthcoming, manual removal, placenta at cervical os but not forthcoming. Delivered intact via holt, 3 vessel cord intact. Perineum inspected and revealed intact. Repaired with 3.0 vicryl rapide and epidural. Fundus firm and hemostasis achieved. EBL 300ml. Mom and baby stable, planning to breastfeed. Family bonding well. Dr. Choi notified of delivery. 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
[2024-08-29] MEDS: Oxytocin 15 Units/NS 250ml 15 UNITS/250 ML IV.SOLN 83 UNITS IV (14:54)
--- NOTE | 2024-08-29 17:20 | NURSING ---
1700: maternal pulse running in the 50's reported to Jcosta. Pt not symptomatic. Plan of care is for the patient to eat.
[2024-08-30 00:39] VITALS: BP 113/58; PULSE 59; RESP 16; TEMP 36.8; O2SAT 99
[2024-08-30 02:00] VITALS: BP 108/65; PULSE 59; RESP 16; TEMP 36.6; O2SAT 99
[2024-08-30 04:40] LABS: Hematocrit 32.4 % (37-47); Hemoglobin 10.7 g/dL (12.0-15.0); Immature Granulocytes Count 0.060 X10^3/uL (0.0-0.0); Mean Corp Hgb Conc 33.0 g/dL (32-36); Mean Corpuscular Volume 82.9 fL (81-99); Mean Platelet Vol. 10.0 fl (6.2-12.0); NRBC Flagged by Analyzer 0 % (0-5); Platelet Count 171 K/mm3 (150-450); RBC Distribution Width CV 14.2 % (11.6-14.6); RBC Distribution Width SD 42.0 fl (35.1-43.9); Red Blood Count 3.91 M/mm3 (4.2-5.4); White Blood Count 8.1 K/mm3 (4.4-11.0)
--- NOTE | 2024-08-30 08:53 | PN.OBGYN_ITS ---
Subjective Subjective Denies complaints Objective Data Objective Data Vital Signs: Vital Signs Temp Pulse Resp BP Pulse Ox O2 Del Method 97.9 F 59 L 16 108/65 99 Room Air 08/30/24 02:00 08/30/24 02:00 08/30/24 02:00 08/30/24 02:00 08/30/24 02:00 08/30/24 02:00 Oxygen Delivery Method Room Air Weight: 194 lb Body Mass Index (BMI) 34.3 Intake & Output: Intake and Output for Last 24 Hours 08/28/24 08/29/24 08/30/24 23:59 23:59 23:59 Intake Total 2205.52 / 2205.52 Output Total 2600 / 2600 900 / 900 Balance -394.48 / -394.48 -900 / -900 Lab / Micro Data 08/30/24 04:30 Labs: Laboratory Results - last 24 hr 08/29/24 07:40: Blood Type A POSITIVE, Antibody Screen NEGATIVE 08/30/24 04:30: WBC 8.1, RBC 3.91 L, Hgb 10.7 L, Hct 32.4 L, MCV 82.9, MCH 27.4, MCHC 33.0, RDW Std Deviation 42.0, RDW Coeff of Lisa 14.2, Plt Count 171, MPV 10.0, Immature Gran % (Auto) 0.700, Neut % (Auto) 63.9, Lymph % (Auto) 26.6, [place] % (Auto) 7.1, Eos % (Auto) 1.5, Baso % (Auto) 0.2, Absolute Neuts (auto) 5.2, Absolute Lymphs (auto) 2.15, Nucleated RBC % 0 Physical Exam Const alert, oriented x3 and no apparent distress HEENT normocephalic GI soft to palpation, non-tender and non-distended GI Narrative: fundus firm, mid & below umbilicus Extremity normal to inspection and no calf tenderness Assessment & Plan (1) Vaginal delivery: COMMENT: PPD#1 PLAN: Plan d/c home per patient request
[2024-08-30 08:54] VITALS: BP 117/60; PULSE 54; RESP 16; TEMP 36.6; O2SAT 98
--- NOTE | 2024-08-30 08:55 | PCM.DC.SUM ---
Providers Date of Admission: 08/29/24 Primary Care Physician: Chelly Primary Care Phys Reason For Visit: VAG DELIVERY Diagnosis Discharge Diagnosis (1) Vaginal delivery: Status: Acute Code(s): O80 - Encounter for full-term uncomplicated delivery Plan d/c home per patient request Medications at Discharge Home Medications vits no.130-ferrous fum 27 mg iron-folic acid 800 mcg tablet 1 tab PO DAILY 04/26/20 acetaminophen 500 mg tablet 1,000 mg (2 x 500 mg) PO Q6H PRN PRN Pain 1-10 Or Fever #0 tabs 08/30/24 ibuprofen 600 mg tablet 600 mg PO Q6H PRN PRN Pain Score 1-10 #0 tabs 08/30/24 Hospital Course Operations None Procedures None Summary of Care Provided Minutes Spent on Discharge: 15 Weight / BMI Weight Weight: 194 lb Body Mass Index (BMI) 34.3 ABG / Lab / Microbiology Data 08/30/24 04:30 Laboratory: Laboratory Results - last 24 hr 08/29/24 07:40: Blood Type A POSITIVE, Antibody Screen NEGATIVE 08/30/24 04:30: WBC 8.1, RBC 3.91 L, Hgb 10.7 L, Hct 32.4 L, MCV 82.9, MCH 27.4, MCHC 33.0, RDW Std Deviation 42.0, RDW Coeff of Lisa 14.2, Plt Count 171, MPV 10.0, Immature Gran % (Auto) 0.700, Neut % (Auto) 63.9, Lymph % (Auto) 26.6, [place] % (Auto) 7.1, Eos % (Auto) 1.5, Baso % (Auto) 0.2, Absolute Neuts (auto) 5.2, Absolute Lymphs (auto) 2.15, Nucleated RBC % 0 D/C Instructions Discharge Diet: No restrictions Discharge Activity: May Shower May resume sexual activity in: 6 weeks Weight Bearing Status: Weight bearing as tolerated Call your doctor if you observe: Fever of 101 or Higher, Coldness, Increased Pain, Change in Color, Inability to urinate, Inability to have a bowel movement, Using more than 1 pad per hour, Shortness of breath, Dizziness, Fainting spells, Chest pain, Increased palpitations (irregular heartbeat), Calf discomfort and Uncontrolled pain DC O2, CPAP, BIPAP Needs Home O2 Discharge instructions: No Please Follow Up With: Tia Bustamante MD When: Follow up in 2 and 6 weeks for visits. Meaningful Use Info Meaningful Use Meaningful Use Diagnoses (Choose all that apply): None applicable Ischemic Stroke Statin Dosing Therapy Reference: STATIN DOSE THERAPY REFERENCE: * Patients > 75 years receive moderate or high dose statin therapy. * Patients 75 years or YOUNGER should receive HIGH intensity statin dose unless contraindicated. You will be required to document reason for non-treatment if statin daily dose does not meet guidelines. HIGH DOSE STATIN THERAPY DAILY Atorvastatin > than or = to 40 mg Rosuvastatin > than or = to 20 mg Amlodipine + Atorvastatin > than or = to 2.5/40 mg Ezetimibe + Simvastatin 10/80 mg Simvastatin 80mg Discharge Plan Admission Admit Date/Time: 08/29/24 07:30 Primary Reason for Your Visit: Vaginal delivery Attending Provider: Hilda Morales Primary Care Provider: Care Physician,Chelly Primary Discharge Orders/Prescriptions Prescriptions: New acetaminophen 500 mg Tablet 1,000 mg PO Q6H PRN PRN (Reason: Pain 1-10 Or Fever) Qty: 0 0RF ibuprofen 600 mg Tablet 600 mg PO Q6H PRN PRN (Reason: Pain Score 1-10) Qty: 0 0RF Continued vit no.[id number] 1 EACH tablet 1 tab PO DAILY Discontinued aspirin 81 mg tablet,delayed release (DR/EC) 81 mg PO DAILY Referrals / Follow Up: Care Physician,No Primary [Primary Care Provider] - Disposition Disposition (needs filled in before D/C Order can be placed): Home, Self Care
[2024-08-30 12:58] VITALS: BP 108/71; PULSE 80; RESP 16; TEMP 36.6; O2SAT 98
== END 2024-08-30 17:00 | disposition home or self-care (01) | DRG 807 ==
PROVIDERS: Admitting Provider Advanced Practice Midwife; Referring Provider Advanced Practice Midwife; Visit Provider Advanced Practice Midwife
DX: O80 Encounter for full-term uncomplicated delivery (principal); Z37.0 Single live birth; Z3A.39 39 weeks gestation of pregnancy
CPT/HCPCS: 59025; 59050; 85025; 86780; 86850; 86900; 86901; 99221; G0378